=== PATIENT | male | born 1950 | race Two or more races ===

== ENCOUNTER 2019-04-11 05:16 | Observation (INO) | payer MEDICARE, MEDICAID ==
[2019-03-31 15:00] VITALS: BP 175/92
[~2019-04-11] VITALS: Ht 175.3 cm; Wt 96.6 kg
[~2019-04-11 05:16] MED LIST: AMLO-150 PO; CHOL200024 PO; GLUC15006 PO; GLYCOPYRROLATE 0.4 MG/2 ML, 2ML ONE; HYDROCHLOROTH12.5 MG PO; LOSA100T14 PO; METF500T17 PO; OMEG-14 PO; TAMS-11 PO; ZOLP10TA5 PO
[2019-04-11] MEDS ORDERED: LACTATED RINGERS 1,000 ML IV SCH (05:45)
[2019-04-11] MEDS ORDERED: ACETAMINOPHEN 500 MG TABLET PO ONE (06:00)
[2019-04-11] MEDS ORDERED: GABAPENTIN 300 MG CAPSULE PO ONE (06:00)
[2019-04-11] MEDS ORDERED: LIDOCAINE-MPF 1%, 2ML INFIL ONE (06:00)
[2019-04-11] MEDS ORDERED: TAMSULOSIN 0.4 MG CAP.ER.24H PO ONE (06:00)
[2019-04-11] MEDS ORDERED: TRANEXAMIC ACID 100 MG/ML, 10ML ONE (06:11)
[2019-04-11] MEDS ORDERED: FENTANYL PF 250 MCG/5ML ONE (06:33)
[2019-04-11] MEDS ORDERED: MIDAZOLAM 1 MG/ML, 2ML ONE (06:33)
[2019-04-11] MEDS ORDERED: BUPIVACAINE/PF 0.25% ONE ×2 (06:36)
[2019-04-11] MEDS ORDERED: SODIUM CHLORIDE 0.9% 1,000 ML IV SCH (06:45)
[2019-04-11] MEDS ORDERED: BISACODYL 10 MG SUPP PR PRN (07:00)
[2019-04-11] MEDS ORDERED: PROMETHAZINE 12.5 MG SUPP PR PRN (07:00)
[2019-04-11] MEDS: OXYcodone IR 5MG TABLET PO SCH ×2 (07:00→13:00)
[2019-04-11] MEDS ORDERED: SCOPOLAMINE PATCH, 1.5MG PATCH.TD72 TD SCH (07:00)
[2019-04-11] MEDS ORDERED: ONDANSETRON 4 MG TABLET PO PRN (07:00)
[2019-04-11] MEDS: ACETAMINOPHEN 500 MG TABLET PO SCH ×2 (07:00→13:00)
[2019-04-11] MEDS ORDERED: DIAZEPAM 5 MG TABLET PO PRN (07:00)
[2019-04-11] MEDS ORDERED: MORPHINE SULFATE 4 MG/ML, 1ML IVPush PRN (07:00)
[2019-04-11] MEDS ORDERED: KETOROLAC 30 MG/1 ML IV SCH ×2 (07:00→17:00)
[2019-04-11] MEDS ORDERED: MAGNESIUM HYDROXIDE 8%, 30ML UDC PO PRN (07:00)
[2019-04-11] MEDS ORDERED: DIPHENHYDRAMINE 25 MG CAPSULE PO PRN (07:00)
[2019-04-11] MEDS ORDERED: OXYcodone 5 MG/5 ML ORAL.SOL UDC PO PRN (07:30)
[2019-04-11] MEDS ORDERED: MEPERIDINE/PF 25MG/ML,1ML IVPush PRN (07:30)
[2019-04-11] MEDS ORDERED: MIDAZOLAM 1 MG/ML, 2ML IV PRN (07:30)
[2019-04-11] MEDS ORDERED: PROMETHAZINE 25 MG/ML, 1ML IV PRN (07:30)
[2019-04-11] MEDS ORDERED: hydrALAzine 20 MG/ML, 1ML IV PRN (07:30)
[2019-04-11] MEDS ORDERED: METOPROLOL 1 MG/ML, 5ML IV PRN (07:30)
[2019-04-11] MEDS ORDERED: DIAZEPAM 5 MG/ML, 2ML IVPush PRN (07:30)
[2019-04-11] MEDS ORDERED: ALBUTEROL/IPRATROPIUM 2.5MG/0.5MG, 3 ML NPPB PRN (07:30)
[2019-04-11] MEDS ORDERED: HYDROmorphone 2 MG/ML, 1ML IVPush PRN (07:30)
[2019-04-11] MEDS ORDERED: ONDANSETRON 2MG/ML, 2ML ONE (08:17)
[2019-04-11] MEDS ORDERED: CEFAZOLIN 1,000 MG ONE (08:17)
[2019-04-11] MEDS ORDERED: PROPOFOL 10 MG/ML, 20ML ONE (08:17)
[2019-04-11] MEDS ORDERED: DEXAMETHASONE 4 MG/ML, 1ML ONE (08:17)
[2019-04-11] MEDS ORDERED: BUPIVACAINE/PF 0.5% ONE (08:41)
[2019-04-11] MEDS ORDERED: KETOROLAC 30 MG/1 ML ONE (08:54)
[2019-04-11] MEDS ORDERED: ZOLPIDEM 10MG TABLET PO SCH (09:00)
[2019-04-11] MEDS ORDERED: AMLODIPINE 5 MG TABLET PO SCH (09:00)
[2019-04-11] MEDS ORDERED: metFORMIN 500 MG TABLET PO SCH (09:00)
[2019-04-11] MEDS ORDERED: TAMSULOSIN 0.4 MG CAP.ER.24H PO SCH (09:00)
[2019-04-11] MEDS ORDERED: HYDROCHLOROTHIAZIDE 12.5 MG CAPSULE PO SCH (09:00)
[2019-04-11] MEDS ORDERED: LOSARTAN 50MG TABLET PO SCH (09:00)
[2019-04-11] MEDS ORDERED: FENTANYL PF 100 MCG/2ML ONE (09:01)
[2019-04-11] MEDS ORDERED: OXYcodone 5 MG/5 ML ORAL.SOL UDC ONE (09:02)
[2019-04-11] MEDS: FENTANYL PF 100 MCG/2ML IV PRN ×2 (09:04→09:14)
[2019-04-11 11:11] VITALS: BP 136/77
[2019-04-11] MEDS ORDERED: CEFAZOLIN PMX 1GM/50ML 50 ML IVPB SCH (11:30)
[2019-04-11 13:50] VITALS: BP 137/74
[2019-04-12] MEDS ORDERED: ASPIRIN 325 MG TABLET PO SCH (06:00)
== END 2019-04-11 16:34 | disposition home or self-care (01) ==
LOC: OUT 05:16 → ORIP 06:45 → 4NE 09:55 → DCLOUNGE 16:25
PROVIDERS: ADMIT Orthopaedic Surgery; ATTEND Orthopaedic Surgery
DX: M17.11 Unilateral primary osteoarthritis, right knee (principal)
CPT/HCPCS: 27447; 73560; 82962; 96365; 97110; 97161; G0378; J0690; J1100; J1885; J2250; J2405; J2704; J3010; J3490; J7030; J7120; S0020; C1713; C1776

== ENCOUNTER 2019-05-18 05:27 | Day surgery (SDC) | payer MEDICARE, MEDICAID ==
[~2019-05-18] VITALS: Ht 175.3 cm; Wt 93.0 kg
[~2019-05-18 05:27] MED LIST changes: -GLYCOPYRROLATE 0.4 MG/2 ML, 2ML ONE
[2019-05-18] MEDS ORDERED: BETAMETHASONE 6 MG/ML, 5ML IM ONE (06:01)
[2019-05-18] MEDS ORDERED: methylPREDNISolone *ACETATE* 40 MG/ML ONE (06:01)
[2019-05-18] MEDS ORDERED: BUPIVACAINE/PF 0.5% ONE (06:01)
[2019-05-18] MEDS ORDERED: methylPREDNISolone SOD SUCC 40 MG/ML ONE (06:01)
[2019-05-18] MEDS ORDERED: TERA10CA3 PO (06:02)
[2019-05-18] MEDS ORDERED: LOSA1TAB22 PO (06:02)
[2019-05-18] MEDS ORDERED: LACTATED RINGERS 1,000 ML IV SCH (06:03)
[2019-05-18 06:04] VITALS: BP 143/81
[2019-05-18] MEDS ORDERED: MIDAZOLAM 1 MG/ML, 2ML ONE (06:25)
[2019-05-18] MEDS ORDERED: FENTANYL PF 100 MCG/2ML ONE (06:25)
[2019-05-18] MEDS ORDERED: PROPOFOL 10 MG/ML, 20ML ONE (06:26)
[2019-05-18] MEDS ORDERED: GABAPENTIN 300 MG CAPSULE PO ONE (06:30)
[2019-05-18] MEDS ORDERED: ACETAMINOPHEN 500 MG TABLET PO ONE (06:30)
[2019-05-18] MEDS ORDERED: FENTANYL PF 100 MCG/2ML IV PRN (07:30)
[2019-05-18] MEDS ORDERED: KETOROLAC 30 MG/1 ML IV PRN (07:30)
[2019-05-18] MEDS ORDERED: OXYcodone 5 MG/5 ML ORAL.SOL UDC PO PRN (07:30)
[2019-05-18] MEDS ORDERED: ONDANSETRON 2MG/ML, 2ML IV PRN (07:30)
[2019-05-18] MEDS ORDERED: hydrALAzine 20 MG/ML, 1ML IV PRN (07:30)
[2019-05-18] MEDS ORDERED: metFORMIN 500 MG TABLET PO SCH (09:00)
[2019-05-18] MEDS ORDERED: TERAZOSIN 5MG CAPSULE PO SCH (09:00)
[2019-05-18] MEDS ORDERED: TAMSULOSIN 0.4 MG CAP.ER.24H PO SCH (09:00)
[2019-05-18] MEDS ORDERED: HYDROCHLOROTHIAZIDE PO SCH (21:00)
[2019-05-18] MEDS ORDERED: LOSARTAN PO SCH (21:00)
[2019-05-18] MEDS ORDERED: [UNRECOGNIZED DRUG - OTHER] PO SCH (21:00)
== END 2019-05-18 08:25 | disposition home or self-care (01) ==
LOC: OUT 05:27
PROVIDERS: ATTEND Orthopaedic Surgery
DX: T84.82XA Fibrosis due to internal orthopedic prosthetic devices, implants and grafts, initial encounter (principal); I10 Essential (primary) hypertension; E11.9 Type 2 diabetes mellitus without complications; N40.0 Benign prostatic hyperplasia without lower urinary tract symptoms; Z79.899 Other long term (current) drug therapy; Z98.890 Other specified postprocedural states; Y83.8 Other surgical procedures as the cause of abnormal reaction of the patient, or of later complication, without mention of misadventure at the time of the procedure
CPT/HCPCS: 20610; 27570; 82962; J2250; J2704; J2920; J3010; J7120; J0702; J1030

== ENCOUNTER → 2020-10-31 | Outpatient (CLI) | payer MEDICARE, MEDICAID ==
[~2020-10-31] MED LIST changes: +LOSA1TAB22 PO; +OMNIPAQUE 350 MG/ML, 100ML BOTTLE ONE; +TERA10CA3 PO
== END | disposition home or self-care (01) ==
LOC: CFH 12:53
PROVIDERS: ATTEND Nurse Practitioner Family
DX: Z01.818 Encounter for other preprocedural examination (principal); C69.32 Malignant neoplasm of left choroid; N28.1 Cyst of kidney, acquired; N20.0 Calculus of kidney; K76.89 Other specified diseases of liver; K75.3 Granulomatous hepatitis, not elsewhere classified
CPT/HCPCS: 71260; 74177; Q9967